=== PATIENT | female | born 1950 | race Caucasian/White ===

== ENCOUNTER 2024-07-01 09:45 | Outpatient (RCR) | payer MEDICARE, OTHER, SELFPAY | END 2024-07-12 14:23 | disposition home or self-care (01) | PROVIDERS: Visit Provider Family Medicine | DX: M25.512 Pain in left shoulder (principal); Z51.89 Encounter for other specified aftercare | CPT/HCPCS: 97110; 97140; 97161 ==

== ENCOUNTER 2024-10-01 11:36 | Outpatient (CLI) | payer MEDICARE, OTHER, SELFPAY ==
--- NOTE | 2024-10-01 13:17 | W.ANESCHARGE ---
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
--- NOTE | 2024-10-01 13:45 | W.ANESCHARGE ---
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
== END 2024-10-01 11:37 | disposition home or self-care (01) ==
LOC: OP CLINIC 11:40
PROVIDERS: PCP Family Medicine; Visit Provider Internal Medicine Gastroenterology
DX: Z12.11 Encounter for screening for malignant neoplasm of colon (principal); K57.30 Diverticulosis of large intestine without perforation or abscess without bleeding; Z86.0101 Personal history of adenomatous and serrated colon polyps
CPT/HCPCS: 00812; 45378; 99100; J2704